=== PATIENT | male | born 1995 | race Caucasian/White ===

== ENCOUNTER 2016-10-15 11:40 | Emergency (ER) | payer OTHER ==
[2016-10-15 11:46] VITALS: BP 124/77; PULSE 90; RESP 18; TEMP 97.8
--- NOTE | 2016-10-15 12:09 | ED ---
Skin/Abscess/FB HPI - General Chief complaint: Skin/Abscess/Foreign Body Stated complaint: poss cyst or swollen lymphnode under rt arm Time Seen by Provider: 10/15/16 11:56 Source: patient, family, RN notes reviewed Mode of arrival: ambulatory Limitations: no limitations - History of Present Illness Initial comments: Patient 21-year-old male who presents emergency room today with chief complaint of abscess located to the right adnexa. Patient does admit that he's had multiple abscesses in the past. States he usually take care of himself has been ongoing for the past 3 weeks she's not improved. Patient denies any other complaints or associated symptoms. Patient denies any recent fever, chills, shortness of breath, chest pain, back pain, abdominal pain, nausea or vomiting, numbness or tingling, dysuria or hematuria, constipation or diarrhea, headaches or visual changes, or any other complaints. - Related Data Previous Rx's Medication Instructions Recorded Sulfamethox-Tmp 800-160Mg [Bactrim 1 tab PO Q12HR #28 tab 10/15/16 DS 800-160 mg] Allergies Allergy/AdvReac Type Severity Reaction Status Date / Time No Known Allergies Allergy Verified 10/15/16 11:46 Review of Systems ROS Statement: Those systems with pertinent positive or pertinent negative responses have been documented in the HPI. ROS Other: All systems not noted in ROS Statement are negative. Past Medical History Additional Past Medical History / Comment(s): IBS History of Any Multi-Drug Resistant Organisms: None Reported Past Surgical History: No Surgical Hx Reported Past Psychological History: Anxiety, Depression, PTSD Smoking Status: Never smoker Past Alcohol Use History: None Reported Past Drug Use History: None Reported General Exam - General Exam Comments Initial Comments: General: The patient is awake and alert, in no distress, and does not appear acutely ill. Eye: Pupils are equal, round and reactive to light, extra-ocular movements are intact. No nystagmus. There is normal conjunctiva bilaterally. No signs of icterus. Ears, nose, mouth and throat: There are moist mucous membranes and no oral lesions. Neck: The neck is supple, there is no tenderness or JVD. Cardiovascular: There is a regular rate and rhythm. No murmur, rub or gallop is appreciated. Respiratory: Lungs are clear to auscultation, respirations are non-labored, breath sounds are equal. No wheezes, stridor, rales, or rhonchi. Musculoskeletal: Normal ROM, no tenderness. Strength 5/5. Sensation intact. Pulses equal bilaterally 2+. Neurological: A&O x 3. CN II-XII intact, There are no obvious motor or sensory deficits. Coordination appears grossly intact. Speech is normal. Skin: Patient does have abscess formation to the right axilla. His deep non- superficial. No abscess head. Psychiatric: Cooperative, appropriate mood & affect, normal judgment. Limitations: no limitations Course Vital Signs 10/15/16 11:45 Temperature 97.8 F Pulse Rate 90 Respiratory 18 Rate Blood Pressure 124/77 O2 Sat by Pulse 97 Oximetry Medical Decision Making - Medical Decision Making Advised patient follow-up with surgeon. Advised that drainage at this time is not advised and we will start on antibiotics. Disposition Clinical Impression: Axillary hidradenitis suppurativa Disposition: HOME SELF-CARE Condition: Good Instructions: Abscess (ED) Additional Instructions: Please use medication as discussed. Please follow-up with surgeon/family doctor in the next 2 days of symptoms have not improved. Please return to emergency room if the symptoms increase or worsen or for any other concerns. Prescriptions: Sulfamethox-Tmp 800-160Mg [Bactrim DS 800-160 mg] 1 tab PO Q12HR #28 tab Referrals: Mik Ochoa DO [Primary Care Provider] - 1-2 days Jamie Card MD [Medical Doctor] - 1-2 days Time of Disposition: 12:08
== END 2016-10-15 12:19 | disposition home or self-care (01) ==
LOC: EC 11:40
DX: L73.2 Hidradenitis suppurativa (principal)
CPT/HCPCS: 99282

== ENCOUNTER 2018-06-24 16:18 | Emergency (ER) | payer OTHER ==
[2018-06-24 16:37] VITALS: RESP 18; TEMP 98.3
[2018-06-24] MEDS ORDERED: ONDANSETRON ODT 4 MG TAB PO STA (17:12)
--- NOTE | 2018-06-24 17:22 | ED ---
URI HPI - General Chief Complaint: Upper Respiratory Infection Stated Complaint: Vomiting & Multiple Abscesses Time Seen by Provider: 06/24/18 16:54 Source: patient, RN notes reviewed Mode of arrival: ambulatory Limitations: no limitations - History of Present Illness Initial Comments: 22-year-old male presents emergency department for URI symptoms. Patient states he's been sick since Monday with cough cold fever bodyaches. Patient states that he's had worsening congestion states that he's had some dizziness and states that he's had intermittent vomiting. Patient had presented from work today and his denies any decreasing right PCP or ER for a work note. Patient states she's had slight nausea no abdominal pain. Patient continues with URI symptoms. Patient states his cough is productive at times. Does admit to a large amount nasal congestion pressure. Patient also states she's noticed some bumps on his skin he states that around certain her follicles he gets increasing redness and swelling. He states they do dissipate with no treatment. - Related Data Previous Rx's Medication Instructions Recorded Sulfamethox-Tmp 800-160Mg [Bactrim 1 tab PO Q12HR #28 tab 10/15/16 DS 800-160 mg] Amoxicillin/Potassium Clav 1 tab PO Q12HR #20 tab 06/24/18 [Augmentin 875-125 Tablet] Ondansetron Odt [Zofran Odt] 4 mg PO Q8HR PRN #10 tab 06/24/18 Allergies Allergy/AdvReac Type Severity Reaction Status Date / Time No Known Allergies Allergy Verified 06/24/18 16:37 Review of Systems ROS Statement: Those systems with pertinent positive or pertinent negative responses have been documented in the HPI. ROS Other: All systems not noted in ROS Statement are negative. Past Medical History Additional Past Medical History / Comment(s): IBS History of Any Multi-Drug Resistant Organisms: None Reported Past Surgical History: No Surgical Hx Reported Past Psychological History: Anxiety, Depression, PTSD Smoking Status: Never smoker Past Alcohol Use History: None Reported Past Drug Use History: None Reported General Exam Limitations: no limitations General appearance: alert, in no apparent distress Head exam: Present: atraumatic, normocephalic, normal inspection Eye exam: Present: normal appearance, PERRL, EOMI. Absent: scleral icterus, conjunctival injection, periorbital swelling ENT exam: Present: normal exam, normal oropharynx, mucous membranes moist, TM's normal bilaterally Neck exam: Present: normal inspection, full ROM. Absent: tenderness, meningismus, lymphadenopathy Respiratory exam: Present: normal lung sounds bilaterally. Absent: respiratory distress, wheezes, rales, rhonchi, stridor Cardiovascular Exam: Present: regular rate, normal rhythm, normal heart sounds. Absent: systolic murmur, diastolic murmur, rubs, gallop, clicks GI/Abdominal exam: Present: soft, normal bowel sounds. Absent: distended, tenderness, guarding, rebound, rigid Course Vital Signs 06/24/18 16:34 Temperature 98.3 F Pulse Rate 100 Respiratory 18 Rate Blood Pressure 142/68 O2 Sat by Pulse 98 Oximetry Medical Decision Making - Medical Decision Making 30-year-old male presented for URI symptoms. Influenza negative chest x-ray unremarkable. Patient has severe sinus congestion. Patient we treated for acute sinusitis this time. Have known chronic issues. Patient will be given Augmentin and Zofran secondary to intermittent nausea related to dizziness. - Lab Data Lab Results 06/24/18 Range/Units 17:32 Influenza Type A RNA Not Detected (Not Detectd) Influenza Type B (PCR) Not Detected (Not Detectd) Disposition Clinical Impression: Sinusitis, Nausea Disposition: HOME SELF-CARE Condition: Stable Instructions (If sedation given, give patient instructions): Upper Respiratory Infection (ED) Additional Instructions: Please return to the Emergency Department if symptoms worsen or any other concerns. Prescriptions: Amoxicillin/Potassium Clav [Augmentin 875-125 Tablet] 1 tab PO Q12HR #20 tab Ondansetron Odt [Zofran Odt] 4 mg PO Q8HR PRN #10 tab PRN Reason: Nausea Is patient prescribed a controlled substance at d/c from ED?: No Referrals: Mik Ochoa DO [Primary Care Provider] - 1-2 days Time of Disposition: 18:12
--- NOTE | 2018-06-24 17:38 | XR ---
EXAMINATION TYPE: XR chest 2V DATE OF EXAM: 06/24/2018 COMPARISON: NONE HISTORY: Respiratory infection TECHNIQUE: Frontal and lateral views of the chest are obtained. FINDINGS: Heart and mediastinum are normal. Lungs are clear. Diaphragm is normal. Bony thorax appear s normal. IMPRESSION: Normal chest.
[2018-06-24 18:29] VITALS: BP 121/64; PULSE 96
== END 2018-06-24 18:29 | disposition home or self-care (01) ==
LOC: EC 16:18
DX: J32.9 Chronic sinusitis, unspecified (principal); R11.2 Nausea with vomiting, unspecified
CPT/HCPCS: 71046; 87502; 99284

== ENCOUNTER 2020-12-24 21:37 | Emergency (ER) | payer OTHER ==
[2020-12-24] MEDS ORDERED: KETOROLAC 15 MG/ML 1 ML VIAL IM STA (21:54)
[2020-12-24] MEDS ORDERED: PENICILLIN V POTASSIUM 250 MG TAB PO STA (21:55)
[2020-12-24] MEDS ORDERED: ACET/COD 300 MG/30 MG STARTER PACK 6 TAB BTL PO STA (21:55)
[2020-12-24] MEDS ORDERED: traMADol 50 MG STARTER PACK 3 TAB BTL PO STA (21:55)
--- NOTE | 2020-12-24 22:06 | ED ---
ENT HPI - General Chief complaint: Dental/Oral Stated complaint: Tooth Pain Time Seen by Provider: 12/24/20 21:47 Source: patient Mode of arrival: ambulatory Limitations: no limitations - History of Present Illness Initial comments: Patient is a 25-year-old male presenting to emergency Department with complaints of left lower sided dental pain over the past week. Patient states he actually had an appointment with dentist today, they removed his upper was some teeth, they did discuss his pain in his lower teeth, patient wanted them to be pulled from her dentist stated that he did not want to pull him as he would not be able to afford and plans or a bridge. They opted to start him on antibiotics and do a root canal. Patient states he did remove the upper wisdom teeth and then sent him home. The worst boasts to call over prescription for antibiotic and pain medicine for him. He went to the pharmacy and they were not there, he called the dentist and the only thing they sent or was a regular strength Tylenol. Patient states he has been trying the Tylenol and Motrin but is not helping with the pain. He states he just wants to get some rest and sleep. He denies any fevers or chills, no facial swelling. He has no further complaints at this time. - Related Data Previous Rx's Medication Instructions Recorded Sulfamethox-Tmp 800-160Mg [Bactrim 1 tab PO Q12HR #28 tab 10/15/16 DS 800-160 mg] Amoxicillin/Potassium Clav 1 tab PO Q12HR #20 tab 06/24/18 [Augmentin 875-125 Tablet] Ondansetron Odt [Zofran Odt] 4 mg PO Q8HR PRN #10 tab 06/24/18 Penicillin V Potassium [Pen Vee K] 500 mg PO QID 7 Days #28 tablet 12/24/20 Allergies Allergy/AdvReac Type Severity Reaction Status Date / Time bee venom protein (honey bee) Allergy Swelling Verified 12/24/20 21:44 Review of Systems ROS Statement: Those systems with pertinent positive or pertinent negative responses have been documented in the HPI. ROS Other: All systems not noted in ROS Statement are negative. Past Medical History Additional Past Medical History / Comment(s): IBS History of Any Multi-Drug Resistant Organisms: None Reported Past Surgical History: No Surgical Hx Reported Past Psychological History: Anxiety, Depression, PTSD Smoking Status: Never smoker Past Alcohol Use History: None Reported Past Drug Use History: None Reported General Exam - General Exam Comments Initial Comments: GENERAL: Patient is well-developed and well-nourished. Patient is nontoxic and in no acute distress. HEAD: Atraumatic, normocephalic. EYES: Pupils equal round and reactive to light, extraocular movements intact, sclera anicteric, conjunctiva are normal. Eyelids were unremarkable. ENT: Nares patent, oropharynx clear without exudates. Moist mucous membranes. Patient has pain over teeth #17 and 18 in the left lower side, there is no visible dental abscess. No facial swelling. NECK: Normal range of motion, supple without lymphadenopathy or JVD. LUNGS: Unlabored respirations. Breath sounds clear to auscultation bilaterally and equal. No wheezes rales or rhonchi. HEART: Regular rate and rhythm without murmurs, rubs or gallops. MUSCULOSKELETAL: Normal extremities with adequate strength and normal range of motion, no pitting or edema. No clubbing or cyanosis. NEUROLOGICAL: Patient is alert and oriented x 3. SKIN: Warm, Dry, normal turgor, no rashes or lesions noted. Limitations: no limitations Course Vital Signs 12/24/20 21:41 Temperature 97.8 F Pulse Rate 98 Respiratory 19 Rate Blood Pressure 162/92 O2 Sat by Pulse 98 Oximetry Medical Decision Making - Medical Decision Making Patient is a 25-year-old male here with left lower dental pain over the past week. He did have his upper wisdom tooth removed today, his dentist was persistent, and antibiotics but never sent over. He also is requesting pain management. I will give him a shot of Toradol today and start him on pe nicillin, and we'll send him home with a starter pack of Tylenol 3's.. I recommended following up with his dentist. He is agreeable to this and is stable for discharge. Disposition Clinical Impression: Toothache Disposition: HOME SELF-CARE Condition: Stable Instructions (If sedation given, give patient instructions): Toothache (ED) Additional Instructions: Please return to the Emergency Department if symptoms worsen or any other concerns. Take antibiotic as prescribed. Alternate Tylenol and Motrin for discomfort. Prescriptions: Penicillin V Potassium [Pen Vee K] 500 mg PO QID 7 Days #28 tablet Is patient prescribed a controlled substance at d/c from ED?: No Referrals: Don,Mik, DO [Primary Care Provider] - 1-2 days Time of Disposition: 22:05
[2020-12-24 22:53] VITALS: BP 150/77; PULSE 92; RESP 20; TEMP 98
== END 2020-12-24 22:52 | disposition home or self-care (01) ==
LOC: EC 21:37
DX: K08.89 Other specified disorders of teeth and supporting structures (principal); F32.9 Major depressive disorder, single episode, unspecified; F41.9 Anxiety disorder, unspecified
CPT/HCPCS: 99282; 96372; J1885

== ENCOUNTER 2021-01-23 04:20 | Emergency (ER) | payer OTHER ==
[2021-01-23 04:26] VITALS: BP 142/87; PULSE 88; RESP 18; TEMP 98
[2021-01-23] MEDS ORDERED: IBUPROFEN 600 MG STARTER PACK 4 TAB BTL PO STA (04:49)
[2021-01-23] MEDS ORDERED: ACET/COD 300 MG/30 MG STARTER PACK 6 TAB BTL PO STA (04:49)
[2021-01-23] MEDS ORDERED: PENICILLIN VK 500MG STARTER 4 TAB BTL PO STA (04:49)
--- NOTE | 2021-01-23 04:53 | ED ---
ENT HPI - General Chief complaint: Dental/Oral Stated complaint: Tooth Pain Time Seen by Provider: 01/23/21 04:41 Source: patient Mode of arrival: ambulatory Limitations: no limitations - History of Present Illness Initial comments: Patient is 25-year-old man with history of dental pain presents with a recurrence of same. He indicates left mandibular tooth. He has noted small amount of swelling. No submandibular fullness or any neck symptoms. No Fever or chills. MD complaint: tooth pain -: days(s) Location: tooth # (17) Quality: aching Consistency: constant Improves with: none Worsens with: none Context-Epistaxis: history of similar - Related Data Previous Rx's Medication Instructions Recorded Sulfamethox-Tmp 800-160Mg [Bactrim 1 tab PO Q12HR #28 tab 10/15/16 DS 800-160 mg] Amoxicillin/Potassium Clav 1 tab PO Q12HR #20 tab 06/24/18 [Augmentin 875-125 Tablet] Ondansetron Odt [Zofran Odt] 4 mg PO Q8HR PRN #10 tab 06/24/18 Penicillin V Potassium [Pen Vee K] 500 mg PO QID 7 Days #28 tablet 12/24/20 Penicillin V Potassium [Pen Vee K] 500 mg PO Q6H #40 tablet 01/23/21 Allergies Allergy/AdvReac Type Severity Reaction Status Date / Time bee venom protein (honey bee) Allergy Swelling Verified 01/23/21 04:26 Review of Systems ROS Statement: Those systems with pertinent positive or pertinent negative responses have been documented in the HPI. ROS Other: All systems not noted in ROS Statement are negative. Constitutional: Denies: fever, chills Eyes: Denies: eye pain, vision change ENT: Reports: dental pain. Denies: throat pain, congestion Respiratory: Denies: cough, dyspnea Cardiovascular: Denies: chest pain, palpitations Neurological: Denies: headache Past Medical History Additional Past Medical History / Comment(s): IBS History of Any Multi-Drug Resistant Organisms: None Reported Past Surgical History: No Surgical Hx Reported Past Psychological History: Anxiety, Depression, PTSD Smoking Status: Never smoker Past Alcohol Use History: None Reported Past Drug Use History: None Reported General Exam Limitations: no limitations General appearance: alert, in no apparent distress Eye exam: Present: normal appearance, EOMI. Absent: scleral icterus, conjunctival injection ENT exam: Present: mucous membranes moist, other (Tooth #17 with mild tenderness. No discernible abscess. No sublingual or submandibular fullness. No neck tenderness) Neck exam: Present: normal inspection, full ROM. Absent: tenderness, lymphadenopathy Skin exam: Present: warm, dry, intact, normal color. Absent: rash Course Vital Signs 01/23/21 04:22 Temperature 98.0 F Pulse Rate 88 Respiratory 18 Rate Blood Pressure 142/87 O2 Sat by Pulse 97 Oximetry Disposition Clinical Impression: Toothache Disposition: HOME SELF-CARE Condition: Good Instructions (If sedation given, give patient instructions): Toothache (ED) Prescriptions: Penicillin V Potassium [Pen Vee K] 500 mg PO Q6H #40 tablet Is patient prescribed a controlled substance at d/c from ED?: No Referrals: Mik Ochoa DO [Primary Care Provider] - 1-2 days
== END 2021-01-23 05:07 | disposition home or self-care (01) ==
LOC: EC 04:20
DX: K08.89 Other specified disorders of teeth and supporting structures (principal); F32.9 Major depressive disorder, single episode, unspecified; F41.9 Anxiety disorder, unspecified
CPT/HCPCS: 99282

== ENCOUNTER 2021-04-06 11:08 | Emergency (ER) | payer OTHER ==
--- NOTE | 2021-04-06 11:57 | ED ---
General Adult HPI - General Chief complaint: Shortness of Breath Stated complaint: Covid exposure/symptoms Time Seen by Provider: 04/06/21 11:15 Source: patient Mode of arrival: ambulatory Limitations: no limitations - History of Present Illness Initial comments: This 25-year-old male presented to the emergency department with shortness of breath and cough 4 days. He states he also has a sore throat and can not smell. He states he has been exposed to covid 19 by 3 different people recently at work. He states he has taken ibuprofen which did not help his symptoms. - Related Data Home Medications Medication Instructions Recorded Confirmed DULoxetine HCL [Cymbalta] 60 mg PO DAILY 04/06/21 04/06/21 Allergies Allergy/AdvReac Type Severity Reaction Status Date / Time bee venom protein (honey bee) Allergy Swelling Verified 04/06/21 11:31 Review of Systems ROS Statement: Those systems with pertinent positive or pertinent negative responses have been documented in the HPI. ROS Other: All systems not noted in ROS Statement are negative. Past Medical History Additional Past Medical History / Comment(s): IBS History of Any Multi-Drug Resistant Organisms: None Reported Past Surgical History: No Surgical Hx Reported Additional Past Surgical History / Comment(s): dental surgery Past Psychological History: Anxiety, Depression, PTSD Smoking Status: Never smoker Past Alcohol Use History: None Reported Past Drug Use History: None Reported General Exam Limitations: no limitations General appearance: alert, in no apparent distress Neck exam: Present: tenderness Respiratory exam: Present: normal lung sounds bilaterally. Absent: respiratory distress, wheezes, rales, rhonchi, stridor Cardiovascular Exam: Present: tachycardia GI/Abdominal exam: Present: soft, normal bowel sounds. Absent: distended, tenderness, guarding, rebound, rigid Neurological exam: Present: alert, oriented X3 Psychiatric exam: Present: normal affect, normal mood Skin exam: Present: warm, dry, intact, normal color. Absent: rash Course Vital Signs 04/06/21 04/06/21 04/06/21 11:11 13:50 13:51 Temperature 100.0 F H 99.2 F Pulse Rate 118 H 115 H Respiratory 17 18 18 Rate Blood Pressure 132/90 129/83 O2 Sat by Pulse 96 95 Oximetry 04/06/21 15:25 Temperature Pulse Rate 108 H Respiratory 18 Rate Blood Pressure 128/93 O2 Sat by Pulse 98 Oximetry Medical Decision Making - Medical Decision Making 25-year-old male presents to the emergency department with shortness breath, cough, sore throat 3 days. He is COVID-19 positive. Patient given Tylenol and Motrin for fever. Patient met criteria for COVID-19 antibody infusion. Patient tolerated antibody infusion well and stated he feels well. Patient waited one hour after infusion, had no side effects from the hospital. Advised patient to get a pulse oximeter at home and to return to the hospital if oxygen drops low 90%. Return precautions discussed. Patient sent home in stable condition. - Lab Data Lab Results 04/06/21 Range/Units 12:34 Coronavirus (PCR) Detected A (Not Detectd) Disposition Clinical Impression: COVID-19 Disposition: HOME SELF-CARE Condition: Stable Additional Instructions: Return to the emergency department if symptoms worsen. Take Tylenol or Motrin as directed. Is patient prescribed a controlled substance at d/c from ED?: No Referrals: Mik Ochoa DO [Primary Care Provider] - 1-2 days
[2021-04-06] MEDS ORDERED: ACETAMINOPHEN TAB 325 MG TAB PO STA (12:02)
--- NOTE | 2021-04-06 13:18 | XR ---
EXAMINATION TYPE: XR chest 2V DATE OF EXAM: 04/06/2021 COMPARISON: 06/24/2018 HISTORY: 25-year-old male with cough and shortness of breath TECHNIQUE: PA and lateral views FINDINGS: The cardiomediastinal silhouette, aorta, and pulmonary vasculature are within normal limits. Low lung volumes with crowded vascular markings. Strandy atelectasis is suggested in the lower lungs. No jeffery k consolidation or pleural effusion. IMPRESSION: Hypoventilatory changes and mild strandy basilar atelectasis.
[2021-04-06 13:52] VITALS: RESP 18
[2021-04-06] MEDS ORDERED: IBUPROFEN 600 MG TAB PO STA (14:14)
[2021-04-06] MEDS ORDERED: SODIUM CHLORIDE 0.9% 50 ML IVPB ONE (15:00)
[2021-04-06] MEDS ORDERED: BAMLANIVIMAB (EUA) 700 MG, ETESEVIMAB (EUA) 1,400 MG in SODIUM CHLORIDE 0.9% 100 ML IVPB ONE (15:00)
[2021-04-06 17:04] VITALS: BP 126/81; PULSE 91; TEMP 98
== END 2021-04-06 17:03 | disposition home or self-care (01) ==
LOC: EC 11:08
DX: U07.1 COVID-19 (principal); F32.A Depression, unspecified; F41.9 Anxiety disorder, unspecified; Z79.899 Other long term (current) drug therapy
CPT/HCPCS: 87635; 71046; 99285; J3490

== ENCOUNTER 2022-10-23 11:39 | Emergency (ER) | payer OTHER ==
[2022-10-23] MEDS ORDERED: DIPH,PERTUS(ACELL)TETVAC-LF 0.5 ML VIAL IM ONE (12:44)
[2022-10-23] MEDS ORDERED: LIDOCAINE 2%-EPI 1:100,000 20 ML VIAL SQ STA (12:44)
--- NOTE | 2022-10-23 12:46 | ED ---
Fall HPI - General Chief Complaint: Fall Stated Complaint: Fall,R side Eyebrow Lac Time Seen by Provider: 10/23/22 12:02 Source: patient Mode of arrival: ambulatory - History of Present Illness Initial Comments: 27-year-old male presents to ED with chief complaint of fall. Patient states he was taking a shower when he slipped on his shampoo/conditioner and fell onto his right side. States that he possibly hit his head on the porcelain tub however is unsure. States that he had a brief loss of consciousness lasting only for a few seconds. Now notes right shoulder pain and a laceration above his right eyebrow. Denies nausea or vomiting. Denies lightheadedness, dizziness, chest pain, shortness of breath prior to the fall. Per mother at bedside abdominal patient is acting appropriately. Tetanus status unknown. No other complaints. - Related Data Home Medications Medication Instructions Recorded Confirmed DULoxetine HCL [Cymbalta] 60 mg PO DAILY 04/06/21 04/06/21 Allergies Allergy/AdvReac Type Severity Reaction Status Date / Time bee venom protein (honey bee) Allergy Swelling Verified 10/23/22 11:52 Review of Systems ROS Statement: Those systems with pertinent positive or pertinent negative responses have been documented in the HPI. ROS Other: All systems not noted in ROS Statement are negative. Past Medical History Additional Past Medical History / Comment(s): IBS History of Any Multi-Drug Resistant Organisms: None Reported Past Surgical History: No Surgical Hx Reported Additional Past Surgical History / Comment(s): dental surgery Past Psychological History: Anxiety, Depression, PTSD Smoking Status: Never smoker Past Alcohol Use History: None Reported Past Drug Use History: None Reported General Exam Limitations: no limitations General appearance: alert, in no apparent distress Head exam: Present: normocephalic, other (Proximally 5 cm lac of the right eyebrow. No Rapp sign or raccoon's eyes.) ENT exam: Present: mucous membranes moist, other (Tongue, uvula midline) Neck exam: Present: other (No Midline cervical spinal tenderness to palpation) Respiratory exam: Present: normal lung sounds bilaterally Cardiovascular Exam: Present: regular rate, normal rhythm Extremities exam: Present: other (Full strength and sensation of bilateral upper and lower extremities. Right shoulder shows full range of motion. No obvious deformity, crepitus, step-off. Radial pulses, DP/PT pulses 2+) Back exam: Present: other (No midline thoracic or lumbar spinal tenderness to palpation) Neurological exam: Present: alert, oriented X3, CN II-XII intact, normal gait Skin exam: Present: warm, dry Course Vital Signs 10/23/22 10/23/22 11:48 12:10 Temperature 98.0 F Pulse Rate 100 89 Respiratory 18 16 Rate Blood Pressure 141/90 133/90 O2 Sat by Pulse 97 97 Oximetry Procedures - Laceration Laceration #1 Site: face Size (cm): 4 (4.5 cm) Description: linear, clean Depth: simple, single layer Anesthetic Used: lidocaine 2%, with epi Anesthesia Technique: local infiltration Amount (mls): 4 Pre-repair: wound explored, irrigated extensively Size of Sutures: 6-0 Number of Sutures: 7 Technique: simple, interrupted Patient Tolerated Procedure: well, no complications Medical Decision Making - Medical Decision Making Was pt. sent in by a medical professional or institution (, [facility], [employer], urgent care, hospital, or custodial...) When possible be specific @ -No Did you speak to anyone other than the patient for history (EMS, parent, family, police, friend...)? What history was obtained from this source @ -Spoke to patient's mother who reports that the patient has been acting appropriately and tetanus status unknown. Did you review nursing and triage notes (agree or disagree)? Why? @ -I reviewed and agree with nursing and triage notes Were old charts reviewed (outside hosp., previous admission, EMS record, old EKG, old radiological studies, urgent care reports/EKG's, custodial records)? Report findings @ -No old charts were reviewed Differential Diagnosis (chest pain, altered mental status, abdominal pain women, abdominal pain men, vaginal bleeding, weakness, fever, dyspnea, syncope, headache, dizziness, GI bleed, back pain, seizure, CVA, palpatations, mental health, musculoskeletal)? @ -Syncope, acute fracture, shoulder dislocation, traumatic hemorrhage. This is not meant to be an all-inclusive list. EKG interpreted by me (3pts min.). @ -As above X-rays interpreted by me (1pt min.). @ -None done CT interpreted by me (1pt min.). @ -None done U/S interpreted by me (1pt. min.). @ -None done What testing was considered but not performed or refused? (CT, X-rays, U/S, labs)? Why? @ -X-ray of the right shoulder was considered however at this time patient has full range of motion of the right shoulder in no deformities on examination. At this time patient deferred shoulder x-ray. CT head/C-spine considered however at this time exam shows no Rapp's sign or raccoon's eyes, unremarkable neurologic exam, no symptoms of nausea or vomiting, and per mother acting appropriately. Discussed benefits of imaging versus watchful waiting and patient's mother is in agreement. We will continue watchful waiting of the patient What meds were considered but not given or refused? Why? @ -None Did you discuss the management of the patient with other professionals (professionals i.e. , PA, [employer], lab, RT, psych nurse, social security benefits interviewer, rental clerk tool and equipment, teacher, commanding officer homicide squad, bottle caser)? Give summary @ -No Was smoking cessation discussed for >3mins.? @ -No Was critical care preformed (if so, how long)? @ -No Were there social determinants of health that impacted care today? How? (Homelessness, low income, unemployed, alcoholism, drug addiction, transportation, low edu. Level, literacy, decrease access to med. care, [facility], rehab)? @ -No Was there de-escalation of care discussed even if they declined (Discuss DNR or withdrawal of care, Hospice)? DNR status @ -No What co-morbidities impacted this encounter? (DM, HTN, Smoking, COPD, CAD, Cancer, CVA, ARF, Chemo, Hep., AIDS, mental health diagnosis, sleep apnea, morbid obesity)? @ -None Was patient admitted / discharged? Hospital course, mention meds given and route, prescriptions, significant lab abnormalities, going to OR and other pertinent info. @ -Discharge. Patient with blunt minor head injury, shoulder injury, and laceration above/of the right eyebrow. Laceration repaired. Please see procedure note for further details. Tetanus updated. At this time patient deferred shoulder x-ray. Discussed watchful waiting with patient's mother. Patient's mother is in agreement. Discussed return precautions with patient and mother who verbalizes agreement. Discharged in stable condition. Undiagnosed new problem with uncertain prognosis? @ -No Drug Therapy requiring intensive monitoring for toxicity (Heparin, Nitro, Insulin, Cardizem)? @ -No Were any procedures done? @ -Yes, laceration repair. Please procedure note for further details. Diagnosis/symptom? @ -Laceration, blunt minor head injury, shoulder pain. Acute, or Chronic, or Acute on Chronic? @ -Acute Uncomplicated (without systemic symptoms) or Complicated (systemic symptoms)? @ -Uncomplicated Side effects of treatment? @ -No Exacerbation, Progression, or Severe Exacerbation? @ -No Poses a threat to life or bodily function? How? (Chest pain, USA, OR, pneumonia, PE, COPD, DKA, ARF, appy, cholecystitis, CVA, Diverticulitis, Homicidal, Suicidal, threat to staff... and all critical care pts) @ -No Disposition Clinical Impression: Laceration, Shoulder pain, Minor closed head injury Disposition: HOME SELF-CARE Condition: Good Instructions (If sedation given, give patient instructions): Care For Your Stitches (ED), Shoulder Pain (ED) Additional Instructions: Please return to the Emergency Department if symptoms worsen or any other concerns. Please returned in 5-7 days for suture removal. Is patient prescribed a controlled substance at d/c from ED?: No Referrals: None,Stated [Primary Care Provider] - 1-2 days Time of Disposition: 13:47
[2022-10-23 14:16] VITALS: BP 140/77; PULSE 67; RESP 18; TEMP 98.6
== END 2022-10-23 14:16 | disposition home or self-care (01) ==
LOC: EC 11:39
DX: S01.111A Laceration without foreign body of right eyelid and periocular area, initial encounter (principal); M25.511 Pain in right shoulder; F32.A Depression, unspecified; F41.9 Anxiety disorder, unspecified; Z79.899 Other long term (current) drug therapy; Z91.030 Bee allergy status; Z23 Encounter for immunization; W18.2XXA Fall in (into) shower or empty bathtub, initial encounter; Y93.E1 Activity, personal bathing and showering
CPT/HCPCS: 12013; 90471; 90715; 99283